=== PATIENT | female | born 1955 | race Caucasian/White ===

== ENCOUNTER → 2016-07-29 | Outpatient (CLI) | payer OTHER ==
[~2016-07-29] MED LIST: ALPR.25 PO; ASPI81TA11 PO; ATOR40TA49 PO; FLON0.053; HYDR-2768 PO; OMPR20CCR PO; RANI150 PO; SERT100 PO; TAB-TAB PO; VENTAER INH; VITATAB25 PO
[2016-07-29 10:15] LABS: BLOOD GAS BASE EXCESS 0.8 mmol/L (-2-2); BLOOD GAS HCO3 25 mmol/L (22-26); BLOOD GAS METHEMOGLOBIN 1.4 % (0-2); BLOOD GAS O2 HGB SATURATION 92 % (90-100); BLOOD GAS OXYGEN CONTENT 17.8 Vol % (12.0-20.0); BLOOD GAS PCO2 43 mmHg (38-42); BLOOD GAS PO2 84 mmHg (61-120); BLOOD GAS TOTAL HGB 13.8 G/DL (12.0-16.0); CRITICAL VALUE NO; DRAW SITE RT RADIAL; FIO2 21 %; NUMBER OF ARTERIAL PUNCTURES 1; STAT NO; TEMP CORR TO 98.6; ULNAR PULSE PRESENT
--- NOTE | 2016-08-01 11:28 | RSPPFT ---
DATE OF PROCEDURE: 07/29/16 COMMENTS: Spirometry with FVC of 3.0 at 95% of predicted, FEV1 of 2.2 at 92%, FEV1/FVC ratio is normal. Flow is decreased at FEF 25, FEF 50, FEF 75. There is no response after bronchodilator treatment. Lung volumes show residual volume is increased. TLC is increased. Diffusion capacity is normal. Flow volume loop indicates small airways obstruction. Room air arterial blood gases show pH of 7.39, PCO2 of 43, PO2 of 84, BiCarb of 25 and O2 Saturation at 92%. IMPRESSION: 1. Small airways obstructive lung disease. 2. No response after bronchodilator treatment. 3. Lung volumes show presence of hyperinflation. 4. Diffusion capacity is normal. 5. Blood gases show normal oxygenation.
== END ==
LOC: HRSP 09:17
PROVIDERS: ATTEND Specialist
DX: J44.9 Chronic obstructive pulmonary disease, unspecified (principal)
CPT/HCPCS: 36600; 82805; 94060; 94726; 94729